=== PATIENT | male | born 1990 | race Caucasian/White ===

== ENCOUNTER 2023-11-12 12:38 | Emergency (ER) | payer OTHER ==
[~2023-11-12] VITALS: Ht 180.3 cm; Wt 88.2 kg
[~2023-11-12 12:38] MED LIST: ALEV220C2 PO; MAPA325T8 PO
[2023-11-12] MEDS: IBUPROFEN 600MG TAB PO ONE (13:32)
[2023-11-12] MEDS: ACETAMINOPHEN 500 MG TAB PO ONE (13:32)
[2023-11-12 14:02] VITALS: BP 147/81; TEMP 97.1; O2SAT 97
== END 2023-11-12 14:04 | disposition home or self-care (01) ==
LOC: M ED 12:38
DX: S90.212A Contusion of left great toe with damage to nail, initial encounter (principal); K21.9 Gastro-esophageal reflux disease without esophagitis; Y92.838 Other recreation area as the place of occurrence of the external cause; Y93.89 Activity, other specified; Y99.9 Unspecified external cause status